=== PATIENT | female | born 1940 | race Two or more races ===

== ENCOUNTER 2019-09-24 12:02 | Emergency (ER) | payer MEDICARE, BC ==
[~2019-09-24] VITALS: Ht 165.1 cm; Wt 81.6 kg
--- NOTE | 2019-09-24 12:07 | NUR ---
BIB [facility] 86,TRIPPED ON A CURVE, LANDING ON HER FACE,NO LOC, NOTED W FOREHEAD SWELLING AND DISCOLORATION AND NOSE BRIDGE AREA LAC 0.5CM. TO ER BED 9, HOOKED TO MONITOR, CHANGED TO GOWN, PROVIDED W WARM BLANKET, AWAITING MD MILNER.
--- NOTE | 2019-09-24 12:55 | NUR ---
SIGN WRITER HAND AT BEDSIDE
[2019-09-24 12:57] LABS: BASOPHILS # (AUTO) 0.1 /CMM (0.0-0.2); BASOPHILS % (AUTO) 0.7 % (0.0-2.0); EOSINOPHILS % (AUTO) 1.8 % (0.0-6.0); HEMATOCRIT 37 % (33-45); HEMOGLOBIN 12.1 g/dL (11.5-14.8); LYMPHOCYTES # (AUTO) 2.9 /CMM (0.8-4.8); LYMPHOCYTES % (AUTO) 24.9 % (20.0-44.0); MEAN CORPUSCULAR HGB CONC 33 g/dl (31.0-36.0); MEAN CORPUSCULAR VOLUME 86 fL (82-100); MONOCYTES # (AUTO) 1.1 /CMM (0.1-1.30); MONOCYTES % (AUTO) 9.4 % (2.0-12.0); NEUTROPHILS # (AUTO) 7.4 /CMM (1.8-8.9); NEUTROPHILS % (AUTO) 63.2 % (43.0-81.0); PLATELET COUNT (AUTO) 396 /CMM (150-450); RED BLOOD CELL COUNT(AUTO) 4.34 MIL/uL (4.0-5.2); WHITE BLOOD COUNT (AUTO) 11.8 K/uL (4.3-11.0)
[2019-09-24 13:05] LABS: CALCIUM, SERUM 9.1 mg/dL (8.5-10.1); CREATININE 0.7 mg/dL (0.6-1.3); POTASSIUM 4.1 mmol/L (3.5-5.1)
[2019-09-24 13:11] LABS: ALBUMIN 3.8 g/dL (3.4-5.0); BILIRUBIN,DIRECT 0.1 mg/dL (0.0-0.2); BILIRUBIN,TOTAL 0.3 mg/dL (0.2-1.0); TOTAL PROTEIN, SERUM 8.6 g/dL (6.4-8.2)
--- NOTE | 2019-09-24 15:55 | NUR ---
IV removed. Catheter intact and site benign. Pressure and 4x4 applied to site. No bleeding noted.Patient discharged to home in stable condition. Written and verbal after care instructions given. Patient verbalizes understanding of instruction.
--- NOTE | 2019-09-24 16:04 | NUR ---
PATIENT REQUESTED TYLENOL, INFORMED MD. RECEIVED VERBAL ORDER OF TYLENOL 1000MG PO. CARRIED OUT
[2019-09-24] MEDS ORDERED: ACETAMINOPHEN ES 500 MG TABLET ONE (16:08)
[2019-09-24 16:14] VITALS: BP 149/88
[2019-09-24] MEDS ORDERED: ACETAMINOPHEN ES 500 MG TABLET PO ONE (16:30)
== END 2019-09-24 16:15 | disposition home or self-care (01) ==
LOC: ER 12:09
DX: S02.2XXA Fracture of nasal bones, initial encounter for closed fracture (principal); S00.83XA Contusion of other part of head, initial encounter; S80.01XA Contusion of right knee, initial encounter; S69.82XA Other specified injuries of left wrist, hand and finger(s), initial encounter; I10 Essential (primary) hypertension; E11.9 Type 2 diabetes mellitus without complications; R51 Headache; Z88.0 Allergy status to penicillin; Z88.5 Allergy status to narcotic agent; W01.0XXA Fall on same level from slipping, tripping and stumbling without subsequent striking against object, initial encounter; Y93.89 Activity, other specified; Y92.89 Other specified places as the place of occurrence of the external cause; Y99.8 Other external cause status
CPT/HCPCS: 36415; 70450; 70486; 73110; 73130; 73564; 80048; 80076; 85025; 85730; 99284; A6403